=== PATIENT | female | born 1990 | race Caucasian/White ===

== ENCOUNTER 2016-10-08 17:48 | Emergency (ER) | payer OTHER, BC ==
[~2016-10-08] VITALS: Ht 160 cm; Wt 67.4 kg
[2016-10-08 17:53] VITALS: BP 146/95; PULSE 98; RESP 16; TEMP 98.2; O2SAT 99
[2016-10-08] MEDS ORDERED: ROBA750T PO (18:44)
[2016-10-08] MEDS ORDERED: IBUP800T23 PO (18:44)
[2016-10-08] MEDS ORDERED: IBUPROFEN 800 MG TAB PO ONE (18:45)
[2016-10-08] MEDS ORDERED: METHOCARBAMOL 500 MG TAB PO SCH (18:45)
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
[2016-10-08 18:57] VITALS: BP 138/90
== END 2016-10-08 18:59 | disposition home or self-care (01) ==
LOC: PHEFT 17:48
DX: S16.1XXA Strain of muscle, fascia and tendon at neck level, initial encounter (principal); V43.52XA Car driver injured in collision with other type car in traffic accident, initial encounter; Y93.89 Activity, other specified; Y92.410 Unspecified street and highway as the place of occurrence of the external cause; Y99.8 Other external cause status
CPT/HCPCS: 99283